=== PATIENT | male | born 1970 | race African-American/Black ===

== ENCOUNTER 2021-11-22 22:22 | Emergency (ER) | payer SELFPAY ==
[~2021-11-22] VITALS: Ht 188 cm; Wt 145.1 kg
--- NOTE | 2021-11-22 23:04 | NUR ---
pt in room 5a c/o lower extrem cramping.
[2021-11-22 23:33] LABS: HEMATOCRIT 37.9 % (36.7-47.1); MEAN CORPUSCULAR VOLUME 91.1 fL (73.0-96.2); PLATELET COUNT (AUTO) 167 K/uL (152-348)
[2021-11-22 23:39] LABS: CREATININE 1.1 mg/dL (0.6-1.3); POTASSIUM 3.8 mmol/L (3.5-5.1)
--- NOTE | 2021-11-22 23:53 | NUR ---
Dr. Guerrero at bedside for MSE.
--- NOTE | 2021-11-22 23:59 | NUR ---
I explained to the pt that the doctor ordered magnessium iv the pt says he does not want it that it will not help. I notified Dr. Guerrero he says just put the iv and give the mangssium. I asked Dr. Guerrero to talk to the pt.
[2021-11-23] MEDS ORDERED: MAGNESIUM SULFATE/D5W 100 ML IV SCH
[2021-11-23] MEDS ORDERED: LORAZEPAM 2 MG/1 ML VIAL IM ONE
--- NOTE | 2021-11-23 00:06 | NUR ---
I went and checked on the pt he says to me that the doctor ordered a magnessium level and we will see if it is low before giving the magnessium.
[2021-11-23] MEDS ORDERED: LORAZEPAM 2 MG/1 ML VIAL ONE (00:11)
--- NOTE | 2021-11-23 00:20 | NUR ---
notified Dr. Guerrero that the pt's magnessium level is 2.2
[2021-11-23] MEDS ORDERED: LORA0.5T48 PO ×2 (01:21→01:23)
[2021-11-23 01:31] VITALS: BP 140/80
--- NOTE | 2021-11-23 01:31 | NUR ---
Patient discharged to home in stable condition. Written and verbal after care instructions given. Patient verbalizes understanding of instructions. Stressed follow up or return to ER for worsening s/s.
== END 2021-11-23 01:33 | disposition home or self-care (01) ==
LOC: ER 22:22
DX: R25.2 Cramp and spasm (principal); R74.8 Abnormal levels of other serum enzymes; R03.0 Elevated blood-pressure reading, without diagnosis of hypertension
CPT/HCPCS: 80048; 82550; 83735; 85025; 36415; 99283; 96372; J2060; A4663

== ENCOUNTER 2022-01-31 01:48 | Emergency (ER) | payer SELFPAY ==
[~2022-01-31] VITALS: Ht 188 cm; Wt 145.1 kg
[~2022-01-31 01:48] MED LIST: LORA0.5T48 PO
[2022-01-31] MEDS ORDERED: IV NS 1000 ML 1,000 ML IV ONE (02:15)
[2022-01-31] MEDS ORDERED: LORAZEPAM 2 MG/1 ML VIAL IV ONE (02:15)
[2022-01-31] MEDS ORDERED: MAGNESIUM SULFATE/D5W 100 ML ONE ×2 (02:21→02:26)
[2022-01-31] MEDS ORDERED: LORAZEPAM 2 MG/1 ML VIAL ONE (02:22)
[2022-01-31] MEDS: MAGNESIUM SULFATE/D5W 100 ML IV SCH ×2 (02:31→02:47)
[2022-01-31 02:37] LABS: CREATININE 1.1 mg/dL (0.6-1.3); POTASSIUM 3.7 mmol/L (3.5-5.1)
[2022-01-31 02:39] LABS: HEMATOCRIT 37.3 % (36.7-47.1); MEAN CORPUSCULAR HEMOGLOBIN 30.5 uug (23.8-33.4); MEAN CORPUSCULAR VOLUME 89.9 fL (73.0-96.2); PLATELET COUNT (AUTO) 210 K/uL (152-348)
[2022-01-31] MEDS ORDERED: CYCL5TAB PO (03:49)
--- NOTE | 2022-01-31 04:53 | NUR ---
Patient is asleep, noted sleep apnea. mouth wide open.
== END 2022-01-31 07:46 | disposition home or self-care (01) ==
LOC: ER 01:50
DX: R25.2 Cramp and spasm (principal)
CPT/HCPCS: 36415; 85025; A4663; J2060; J3475; J7040